=== PATIENT | female | born 1955 | race Caucasian/White ===

== ENCOUNTER 2019-07-23 11:17 | Emergency (ER) | payer MEDICARE ==
--- NOTE | 2019-07-23 11:32 | CT ---
CT Brain WO Con History: Facial droop Comparison: None. Findings: No acute hemorrhage or infarct. No midline shift. No mass effect. Calvarium is intact. Paranasal sinuses and mastoids are clear. Impression: No acute intracranial abnormality. Code: PATRICIA
== END 2019-07-23 12:01 | disposition home or self-care (01) ==
LOC: ERS 11:17
DX: G51.0 Bell's palsy (principal); Z79.899 Other long term (current) drug therapy
CPT/HCPCS: 70450

== ENCOUNTER 2020-04-03 08:30 | Outpatient (CLI) | payer MEDICARE ==
--- NOTE | 2020-04-03 10:38 | MRI ---
LEFT SHOULDER MRI WITHOUT IV CONTRAST: HISTORY: Acute pain left shoulder. FINDINGS: Very mild AC joint arthrosis changes. There is some fluid in the subacromial bursa possibly represen ting some bursitis. Minimal focal thinning of the supraspinatus tendon at the level of the magic ang le, probably low-grade partial thickness undersurface tearing. Infraspinatus tendon appears intact. Subscapularis tendon demonstrates some minimal tendinopathy. Biceps tendon appears intact. No acut e osteochondral defect. Visualized labrum appears unremarkable. Rotator cuff muscles are within nor mal limits of signal and volume. IMPRESSION: Some fluid in the subacromial bursa possibly representing some focal bursitis. Slight thinning of th e supraspinatus tendon at the level of the magic angle, possibly a tiny low-grade undersurface tear. Minimal subscapularis tendinopathy. No evidence for other significant acute internal derangement. POS: OFF
== END 2020-04-03 08:31 | disposition home or self-care (01) ==
LOC: SCSMRI 08:30
DX: M79.622 Pain in left upper arm (principal); M25.412 Effusion, left shoulder; M67.814 Other specified disorders of tendon, left shoulder; Z85.3 Personal history of malignant neoplasm of breast